=== PATIENT | female | born 1985 | race Caucasian/White ===

== ENCOUNTER 2017-10-12 09:40 | Inpatient (IN) ==
[2017-10-12] MEDS ORDERED: CARBOPROST 250 MCG/ML INJECTION IM PRN (17:13)
[2017-10-12] MEDS ORDERED: ACETAMINOPHEN 500 MG TABLET PO PRN (17:13)
[2017-10-12] MEDS ORDERED: MAG-AL + SIM ORAL LIQUID 30ml PO PRN (17:13)
[2017-10-12] MEDS ORDERED: METHYLERGONOVINE 0.2 MG/ML INJECTION IM PRN (17:13)
[2017-10-12] MEDS ORDERED: LIDOCAINE 1% (10mg/ml) 2mL INJ PF SDV ID PRN (17:13)
[2017-10-12] MEDS ORDERED: CALCIUM CARBONATE Chewable 500mg TABLET PO PRN (17:13)
[2017-10-12] MEDS ORDERED: SALINE FLUSH 10ml SYRINGE IV PRN (17:16)
[2017-10-12] MEDS ORDERED: TERBUTALINE 1 MG/ML VIAL SQ PRN (17:16)
[2017-10-12] MEDS ORDERED: DINOPROSTONE 10 MG VAGINAL INSERT VG ONE (17:16)
[2017-10-12 17:18] VITALS: BMI 39.4
[2017-10-12] MEDS: SALINE FLUSH 10ml SYRINGE IV PRN ×2 (17:43→20:57)
[2017-10-12] MEDS ORDERED: ZOLPIDEM 10 MG TABLET PO PRN (17:56)
[2017-10-12] MEDS ORDERED: LOPERAMIDE 2 MG CAPSULE PO PRN (18:26)
[2017-10-13] MEDS ORDERED: D5LR 1,000 ML IV PRN (06:00)
[2017-10-13] MEDS ORDERED: OXYTOCIN DRIP 30 UNIT/500 ML ML IV PRN (06:00)
[2017-10-13] MEDS: LR 1,000 ML IV PRN ×2 (06:03→10:05)
[2017-10-13] MEDS ORDERED: DiphenhydrAMINE 50 MG/ML INJECTION IVP PRN (09:35)
[2017-10-13] MEDS ORDERED: ROPIVACAINE 1% 10MG/ML INJ 200 MG, SUFentanil 50 MCG in NS 100 ML EPI PRN (09:35)
[2017-10-13] MEDS ORDERED: NALOXONE 0.4 MG/ML INJECTION IVP PRN (09:35)
[2017-10-13] MEDS ORDERED: ONDANSETRON 4 MG/2 ML INJECTION IVP PRN (09:35)
--- NOTE | 2017-10-13 09:35 | Anesthesia Preoperative Report ---
Anesthesia Epidural/Spinal Rec - Date and Time Date: 10/13/17 Procedure: Labor Epidural Plan: Epidural - Vital Signs Vital Signs: Temperature 98.9 F 10/12/17 17:37 Pulse Rate 86 10/12/17 17:37 Respiratory Rate 18 10/12/17 17:37 Blood Pressure 130/78 10/12/17 17:37 Pulse Oximetry 96 10/12/17 17:37 /Para: P:0 - Medictaions & Allergies Inpatient Medications: Current Medications Acetaminophen (Tylenol) 500 - 1,000 mg PO Q4H PRN PRN Reason: Pain Al Hydroxide/Mg Hydroxide (Maalox Plus) 30 ml PO Q3H PRN PRN Reason: Indigestion Calcium Carbonate (Tums) 500 - 1,000 mg PO Q2H PRN PRN Reason: Indigestion Carboprost Tromethamine (Hemabate) 250 mcg IM O PRN PRN Reason: .Downtime Diphenhydramine HCl (Benadryl) 50 mg PO HS PRN PRN Reason: Sleep Lactated Ringer's (Lactated Ringers) 1,000 mls @ 999 mls/hr IV .Q1H1M PRN Last Admin: 10/13/17 06:03 Dose: 999 mls/hr Oxytocin (Pitocin Drip) 30 unit in 500 mls @ 2 mls/hr IV .Q24H PRN; Protocol PRN Reason: Induction/Augmentation Last Admin: 10/13/17 06:03 Dose: 2 mls/hr Dextrose/Lactated Ringer's (Dextrose 5%-Lactated Ringers) 1,000 mls @ 125 mls/ hr IV .Q8H PRN PRN Reason: Labor Last Admin: 10/13/17 06:03 Dose: 125 mls/hr Lidocaine HCl (Xylocaine-Mpf 1% Vial) 0.2 mg ID O PRN PRN Reason: IV Start Loperamide HCl (Imodium) 2 mg PO PRN PRN; Protocol Last Admin: 10/12/17 18:52 Dose: 2 mg Methylergonovine Maleate (Methergine) 0.2 mg IM O PRN Misoprostol (Cytotec) 800 mcg MN ONCE PRN Sodium Chloride (Iv Flush) 10 - 80 ml IV PRN PRN PRN Reason: Flushing Last Admin: 10/12/17 20:57 Dose: 10 ml Sodium Chloride (Iv Flush) 10 - 80 ml IV PRN PRN PRN Reason: Flushing Terbutaline Sulfate (Brethine) 0.25 mg SQ PRN PRN Zolpidem Tartrate (Ambien) 10 mg PO HS PRN PRN Reason: Insomnia Last Admin: 10/12/17 21:48 Dose: 10 mg Allergies/Adverse Reactions: Allergies Allergy/AdvReac Type Severity Reaction Status Date / Time No Known Drug Allergies Allergy Unknown Verified 10/12/17 17:17 - Home Medications Home Medications: Home Medications Medication Instructions Recorded Confirmed Type Cetirizine HCl [Zyrtec] 1 cap PO DAILY #0 cap 05/31/16 10/12/17 History Citalopram Hydrobromide [Celexa] 1 tab PO DAILY #0 tab 05/31/16 10/12/17 History - Medical History Cardiovascular: Reports: Hypertension Gastrointestional: Reports: Gastroesophageal Reflux Disease Neuro/Musculoskeletal: Reports: Depression (takes celexa) Other History: Reports: Now - Surgical History HEENT Surgeries: Reports: Nose Surgery (at age 24) GI Surgery/Treatments: Reports: EGD Reproductive Surgery/Treatment: DENIES: Section Anesthesia Reactions: None Hx Family Anesthesia Reaction: No History of Motion Sickness: No - Social History Smoking Status: Former smoker Substance Use Type: does not use - Pertinent Findings Lab Data: CBC and BMP 10/12/17 17:44 - Physical Exam Respiratory Exam: lungs clear, bilateral breath sounds equal Cardiovascular Exam: regular rate and rhythm - Airway Assessment TMD: 3 Fingerbreadths Neck Extension: good Overall Assessment: may be difficult mask vent, may be difficult intubation - ASA ASA Score: 2 - Discussion Discussion: Discussed risks/options/alternatives of anesthesia and questions answered. Patient consents. Nursing pain assessment noted. Anesthesia Discussion: spouse, parent (mother) Attestation Statement: Prior to the delivery of any anesthetic medication, I examined the patient, developed the plan, obtained the patient's consent and discussed the risk and benefits of the procedure with the patient/guardian.
[2017-10-13] MEDS ORDERED: CITRIC ACID/SODIUM CITRATE 30ml PO ONE (09:54)
[2017-10-13] MEDS ORDERED: FAMOTIDINE PB 20 MG/50 ML BAG IV ONE (09:54)
[2017-10-13] MEDS ORDERED: CEFAZOLIN PREMIX (MC ONLY) 2 GM/50 ML BAG IV ONE (09:54)
[2017-10-13] MEDS ORDERED: ONDANSETRON 4 MG/2 ML INJECTION ONE (10:28)
[2017-10-13] MEDS: OXYTOCIN BOLUS BAG 30 UNIT/500 ML ML IV SCH ×2 (10:33→11:12)
[2017-10-13] MEDS ORDERED: FentaNYL 100 MCG/2 ML INJECTION ONE (10:42)
[2017-10-13] MEDS ORDERED: MORPHINE SULFATE PF 5mg/10ml INJ (Duramorph) ONE (10:58)
[2017-10-13] MEDS ORDERED: HYDROCORTISONE 2.5% CREAM 30gm RECTALLY PRN (12:45)
[2017-10-13] MEDS ORDERED: OXYTOCIN DRIP 30 UNIT/500 ML ML IV SCH (12:45)
[2017-10-13] MEDS ORDERED: D5LR 1,000 ML IV SCH (12:45)
[2017-10-13] MEDS ORDERED: ACETAMINOPHEN 500 MG TABLET PO PRN (12:45)
[2017-10-13] MEDS ORDERED: SIMETHICONE 80 MG CHEWABLE TABLET PO PRN (12:45)
[2017-10-13] MEDS ORDERED: CALCIUM CARBONATE Chewable 500mg TABLET PO PRN (12:45)
[2017-10-13] MEDS: IBUPROFEN 800 MG TABLET PO PRN ×2 (12:50→22:36)
[2017-10-13] MEDS: HYDROCODONE/APAP 5mg/325mg TABLET PO PRN ×2 (12:52→18:07)
[2017-10-13] MEDS ORDERED: HYDROMORPHONE 2 MG/ML INJECTION IVP PRN (13:51)
[2017-10-13] MEDS: DiphenhydrAMINE 25 MG CAPSULE PO PRN ×2 (14:09→21:14)
--- NOTE | 2017-10-13 14:22 | Operative Note ---
DATE OF OPERATION 10/13/2017 PREOPERATIVE DIAGNOSIS 1. Nonreassuring heart tones remote from delivery. 2. Mild preeclampsia with proteinuria. 3. Term . POSTOPERATIVE DIAGNOSIS 1. Nonreassuring heart tones remote from delivery. 2. Mild preeclampsia with proteinuria. 3. Term . 4. Delivered. PROCEDURES Primary low transverse section. SURGEON Ladonna Lai MD [employer] Ravin Fong DO ANESTHESIA Continuous epidural DIPPING MACHINE OPERATOR Lee Escalante CRNA EBL 800 mL DESCRIPTION OF PROCEDURE Ms. León was brought to the OR and placed on the OR table in the supine position with left lateral displacement. She previously had had a Fernandez catheter placed to dependent drain. Her epidural analgesia was brought up to adequate surgical levels. The abdomen was prepped and draped in the usual sterile fashion. A Pfannenstiel skin incision was made with a sharp knife. This was carried down to fascia. Fascia was then incised transversely. This was bluntly and sharply dissected free of the rectus muscles. Rectus muscles were bluntly divided. Peritoneum was tented up and sharply entered, then extended vertically. The bladder blade was inserted. The vesicouterine fold of peritoneum was tented up and incised transversely and bladder flap bluntly created. The bladder blade was then reinserted. A low transverse uterine incision was made with a sharp knife. The amniotic fluid sac was entered and there was copious clear amniotic fluid. Baby was delivered in the vertex presentation without difficulty. Baby was bulb suctioned on the abdomen. Cord was doubly clamped and cut and baby was given to Dr. Harris and his team for care. This is a liveborn male with Apgars of 7/8/9. The placenta was then manually extracted, intact. It had a normal configuration and a normal- appearing three-vessel cord. The uterus was then exteriorized. We reapproximated the myometrial incision with a running locking 0 Monocryl. There was a small area of bleeding along the left inferior edge, I initially tried to secure by imbricating the area with another 0 Monocryl. However, this did not secure it. I then secured it with a [id number] 2-0 Vicryl. At this point, hemostasis was under good control. The uterus, tubes and ovaries were noted to be grossly normal and were returned to the abdominal cavity. We reinspected the incision. It remained hemostatic. Peritoneum was then reapproximated with a running nonlocking 2-0 Vicryl. Fascia was reapproximated with running nonlocking 0 Vicryl. Skin edges were reapproximated with a subcuticular style 3-0 undyed Vicryl. The wound was dressed with sterile dressing. Counts were correct postoperatively x2. The urine remained clear and free-flowing throughout the procedure. Ms. León was then transferred to recovery in stable condition. IMANI
--- NOTE | 2017-10-13 14:22 | Anesthesia Postoperative Note ---
- Date and Time Date: 10/13/17 Time: 13:15 - Status Patient Participated in Evaluation: Patient Participated in Person Vital Signs: Temperature 98.9 F 10/12/17 17:37 Pulse Rate 86 10/12/17 17:37 Respiratory Rate 18 10/12/17 17:37 Blood Pressure 130/78 10/12/17 17:37 Pulse Oximetry 96 10/12/17 17:37 Respiratory Function: Airway Patent Cardiovascular Function: Regular Pulse EKG: Sinus Rhythm Mental Status: Alert and Oriented Pain Intensity: 5 (just received pain med from RN) Hydration: Taking PO Fluids Complications During Recover: None Apparent Post Anesthesia Care Notes: minimal numbness remains. full motor function returning - Follow-Up Instructions Instructions: Per Surgeon
[2017-10-13] MEDS: SIMETHICONE 80 MG CHEWABLE TABLET PO SCH ×2 (18:07→21:15)
[2017-10-14] MEDS: HYDROCODONE/APAP 5mg/325mg TABLET PO PRN (01:58)
[2017-10-14] MEDS ORDERED: HydrOXYzine 50 MG TABLET PO SCH (02:30)
[2017-10-14] MEDS ORDERED: NALBUPHINE 10 MG/ML INJECTION IVP ONE (07:55)
--- NOTE | 2017-10-14 08:12 | OB/GYN Progress Note ---
OB-PP Progress Note - General POD:: POD1 - Subjective Date: 10/14/17 Lochia: Moderate Pain: controlled Voiding: voiding Nausea or Vomiting Present: No - Objective Vital Signs: Last Vital Signs Temp 98.1 F 10/14/17 03:15 Pulse 74 10/14/17 03:15 Resp 18 10/14/17 03:15 BP 122/69 10/14/17 03:15 Pulse Ox 97 10/14/17 03:15 Urine Output: good General: alert and oriented Abdomen: fundus firm Incision: clean, dry, intact Extremities: non-tender Laboratory: Laboratory Results - last 24 hr 10/13/17 10/13/17 11:16 16:14 WBC 13.3 H RBC 3.82 L Hgb 11.8 L Hct 34.2 L MCV 89.5 MCH 30.9 MCHC 34.5 RDW Std Deviation 39.1 Plt Count 153 MPV 10.7 Cord ABG pH 7.307 Cord ABG pCO2 47.3 Cord ABG pO2 14.4 Cord ABG HCO3 23.6 Cord ABG Total CO2 25.1 Cord ABG Base Excess -3.0 Cord ABG O2 Sat 15.2 - Assessment Assessment: Primary C/S - Plan Plan: routine care (Patient reports itching since yesterday approx. 2 hours after surgery. Took benadryl and vistaril last evening which helped. Will disc with Dr. Lai if meds need changed. )
[2017-10-14] MEDS: DOCUSATE CALCIUM 240 MG CAPSULE PO SCH (09:21)
[2017-10-14] MEDS: SIMETHICONE 80 MG CHEWABLE TABLET PO SCH ×5 (09:21→23:34)
[2017-10-14] MEDS: TRAMADOL 50 MG TABLET PO PRN ×2 (10:58→15:24)
[2017-10-14] MEDS: IBUPROFEN 800 MG TABLET PO PRN ×2 (11:01→19:37)
--- NOTE | 2017-10-14 18:10 | Progress Note ---
OB PP Progress Note Free Text - Date Date: 10/14/17 - Progress Note Progress Note: Asked by RN to see pt for pain. Pt declines anything narcotic so will continue current plan. q&a-
[2017-10-15] MEDS: IBUPROFEN 800 MG TABLET PO PRN (06:34)
[2017-10-15] MEDS: DOCUSATE CALCIUM 240 MG CAPSULE PO SCH ×2 (06:34→09:40)
[2017-10-15 07:29] VITALS: RESP 18
[2017-10-15] MEDS: SIMETHICONE 80 MG CHEWABLE TABLET PO SCH (09:07)
[2017-10-15 10:40] VITALS: BP 132/73; PULSE 97; TEMP 98.7; O2SAT 100
== END 2017-10-15 11:58 | disposition home or self-care (01) | DRG 766 ==
LOC: MC 17:00
PROVIDERS: ADMIT Obstetrics & Gynecology; ATTEND Obstetrics & Gynecology